=== PATIENT | female | born 1985 | race Caucasian/White ===

== ENCOUNTER 2022-04-09 03:29 | Outpatient (CLI) | payer OTHER, SELFPAY ==
[2022-04-09 11:20] LABS: Abs Immature Grans 0.05 10^3/uL (0.0-0.06); Absolute Basophil Count 0.03 10^3/uL (0.0-0.2); Absolute Eosinophil Count 0.13 10^3/uL (0.0-0.7); Absolute Monocyte Count 0.51 10^3/uL (0.1-0.8); Absolute Neutrophil Count 8.27 10^3/uL (1.2-6.7); Basophils % 0.3; Eosinophils % 1.3; HCT 31.8 % (36.0-46.0); HGB 10.7 g/dL (11.2-15.7); Immature Grans % 0.5; Lymphocytes % 12.6; MCH 28.8 pg (27.0-33.0); MCHC 33.6 % (32.0-36.0); MCV 86 fL (80-95); MPV 9.4 fL (8.0-11.0); Neutrophils % 80.3; Platelet Count 312 10^3/uL (130-400); RBC 3.72 10^6/uL (3.93-5.22); RDW 13.4 % (11.7-14.6); RDW-SD 41.7 fL; WBC 10.29 10^3/uL (4.4-10.8)
[2022-04-09 15:20] LABS: *AMPHETAMINES SCREEN URINE Negative (Negative); *BARBITURATES SCREEN URINE Negative (Negative); *BENZODIAZEPINES SCREEN URINE Negative (Negative); Cannabinoids THC Negative (Negative); Cocaine Screen,Urine Negative (Negative); METHADONE URINE SCREEN Negative (Negative); OPIATES URINE SCREEN Negative (Negative)
[2022-04-09 15:21] LABS: Tricyclic Antidepressants Negative (Negative)
[2022-04-10 09:28] LABS: Hepatitis B Surface Ag Negative (Negative)
[2022-04-10 09:48] LABS: Hepatitis C Ab w Rflx HCV PCR Negative (Negative)
[2022-04-10 10:33] LABS: HIV-1/2 Ag & Ab Screen Negative (Negative)
[2022-04-10 11:05] LABS: Varicella IgG Antibody Positive (See Note)
[2022-04-10 11:07] LABS: Rubella IgG Ab (UVM) Positive (See Note)
[2022-04-10 13:45] LABS: Chlamydia Result Negative (Negative); GC Result Negative (Negative)
[2022-04-11 12:59] LABS: Syphilis IgG w/Reflex Nonreactive (Nonreactive)
[2022-04-12 16:04] LABS: Buprenorphine Negative ng/mL (Cutoff: 5.0); Norbuprenorphine Negative ng/mL (Cutoff: 2.5)
== END 2022-04-09 03:30 | disposition home or self-care (01) ==
LOC: LBO 03:29
PROVIDERS: PCP Nurse Practitioner Family; Visit Provider Advanced Practice Midwife
DX: Z34.91 Encounter for supervision of normal pregnancy, unspecified, first trimester (principal)
CPT/HCPCS: 36415; 80307; 86787; 86803; 86850; 86900; 86901; 87340; 87389; 87491; 87591; 85025; 86762; 86780; 87086

== ENCOUNTER 2022-07-31 03:37 | Outpatient (CLI) | payer OTHER, SELFPAY ==
[2022-07-31 10:22] LABS: HCT 29.2 % (36.0-46.0); HGB 9.6 g/dL (11.2-15.7); MCH 28.7 pg (27.0-33.0); MCHC 32.9 % (32.0-36.0); MCV 87 fL (80-95); Platelet Count 299 10^3/uL (130-400); RBC 3.34 10^6/uL (3.93-5.22); RDW 13.2 % (11.7-14.6); RDW-SD 41.8 fL; WBC 10.89 10^3/uL (4.4-10.8)
[2022-07-31 11:23] LABS: Glucose,1 Hr (Glucola) 137 mg/dL (80-140)
== END 2022-07-31 03:38 | disposition home or self-care (01) ==
LOC: LBO 03:37
PROVIDERS: PCP Nurse Practitioner Family; Visit Provider Advanced Practice Midwife
DX: Z34.92 Encounter for supervision of normal pregnancy, unspecified, second trimester (principal)
CPT/HCPCS: 36415; 82950; 85027

== ENCOUNTER 2022-08-09 04:02 | Outpatient (CLI) | payer OTHER, SELFPAY ==
[2022-08-09 11:42] LABS: Glucose 3 Hour 59 mg/dL
[2022-08-09 12:17] LABS: Glucose 1 Hour 162 mg/dL
== END 2022-08-09 04:03 | disposition home or self-care (01) ==
LOC: LBO 04:02
PROVIDERS: Advanced Practice Midwife; PCP Nurse Practitioner Family; Visit Provider Advanced Practice Midwife
DX: Z34.93 Encounter for supervision of normal pregnancy, unspecified, third trimester (principal); Z3A.29 29 weeks gestation of pregnancy
CPT/HCPCS: 36415; 82951

== ENCOUNTER 2022-09-14 12:36 | Outpatient (CLI) | payer OTHER, SELFPAY ==
[2022-09-14 10:29] LABS: HCT 30.7 % (36.0-46.0); HGB 9.9 g/dL (11.2-15.7); MCH 27.7 pg (27.0-33.0); MCHC 32.2 % (32.0-36.0); MCV 86 fL (80-95); MPV 9.7 fL (8.0-11.0); Platelet Count 211 10^3/uL (130-400); RBC 3.57 10^6/uL (3.93-5.22); RDW 14.4 % (11.7-14.6); RDW-SD 44.8 fL; WBC 9.36 10^3/uL (4.4-10.8)
== END 2022-09-14 12:37 | disposition home or self-care (01) ==
LOC: LBO 12:36
PROVIDERS: PCP Nurse Practitioner Family; Visit Provider Advanced Practice Midwife
DX: O99.013 Anemia complicating pregnancy, third trimester (principal)
CPT/HCPCS: 36415; 85027

== ENCOUNTER 2022-09-25 02:04 | Outpatient (RCR) | payer OTHER, SELFPAY ==
[2022-09-17] MEDS: IRON SUCROSE COMPLEX 200 MG in Normal Saline 100 ML 440 MG IVPB (09:50)
[2022-09-17] MEDS: Normal Saline Flush 10 ML SYR IVP (09:50)
[2022-09-24 10:11] LABS: HGB 10.6 g/dL (11.2-15.7)
[2022-09-24] MEDS: Normal Saline Flush 10 ML SYR IVP (10:29)
[2022-09-24] MEDS: IRON SUCROSE COMPLEX 200 MG in Normal Saline 100 ML 440 MG IVPB (10:29)
== END 2022-09-25 23:59 | disposition home or self-care (01) ==
LOC: INF 02:04
PROVIDERS: PCP Nurse Practitioner Family; Visit Provider Advanced Practice Midwife
DX: O99.013 Anemia complicating pregnancy, third trimester (principal)
CPT/HCPCS: 36415; 96365; 85018; J1756

== ENCOUNTER 2022-09-28 09:34 | Outpatient (CLI) | payer OTHER, SELFPAY ==
[2022-09-28 12:17] LABS: *AMPHETAMINES SCREEN URINE Negative (Negative); *BARBITURATES SCREEN URINE Negative (Negative); *BENZODIAZEPINES SCREEN URINE Negative (Negative); Cannabinoids THC Negative (Negative); Cocaine Screen,Urine Negative (Negative); METHADONE URINE SCREEN Negative (Negative); OPIATES URINE SCREEN Negative (Negative)
[2022-09-28 12:18] LABS: Tricyclic Antidepressants Negative (Negative)
[2022-10-05 16:50] LABS: Buprenorphine Negative ng/mL (Cutoff: 5.0); Norbuprenorphine Negative ng/mL (Cutoff: 2.5)
== END 2022-09-28 09:35 | disposition home or self-care (01) ==
LOC: LBN 09:35
PROVIDERS: PCP Nurse Practitioner Family; Visit Provider Advanced Practice Midwife
DX: Z34.93 Encounter for supervision of normal pregnancy, unspecified, third trimester (principal); Z3A.36 36 weeks gestation of pregnancy; Z36.85 Encounter for antenatal screening for Streptococcus B
CPT/HCPCS: 80307; 80348; 87081

== ENCOUNTER 2022-10-08 02:56 | Outpatient (RCR) | payer OTHER, SELFPAY ==
[2022-10-01] MEDS: Normal Saline Flush 10 ML SYR IVP (09:45)
[2022-10-01 09:59] LABS: HGB 9.8 g/dL (11.2-15.7)
[2022-10-01] MEDS: IRON SUCROSE COMPLEX 200 MG in Normal Saline 100 ML 440 MG IVPB (10:19)
[2022-10-08] MEDS: IRON SUCROSE COMPLEX 200 MG in Normal Saline 100 ML 440 MG IVPB (09:55)
[2022-10-08 09:57] LABS: HCT 34.6 % (36.0-46.0); MCH 27.7 pg (27.0-33.0); MCHC 32.7 % (32.0-36.0); MCV 85 fL (80-95); MPV 10.8 fL (8.0-11.0); Platelet Count 256 10^3/uL (130-400); RBC 4.08 10^6/uL (3.93-5.22); RDW 15.8 % (11.7-14.6); RDW-SD 48.1 fL; WBC 10.18 10^3/uL (4.4-10.8)
[2022-10-08] MEDS: Normal Saline Flush 10 ML SYR IVP (09:59)
[2022-10-08 10:01] LABS: HGB 11.3 g/dL (11.2-15.7)
[2022-10-08 10:39] LABS: Total Iron Binding Capacity 570 ug/dL (250-450)
[2022-10-08 10:57] LABS: Ferritin 290 ng/mL (8-252); Vitamin B12 379 pg/mL (193-986)
== END 2022-10-26 23:59 | disposition home or self-care (01) ==
LOC: INF 02:56
PROVIDERS: PCP Nurse Practitioner Family; Visit Provider Advanced Practice Midwife
DX: O99.013 Anemia complicating pregnancy, third trimester (principal)
CPT/HCPCS: 36415; 85027; 96365; 82607; 82728; 83550; 84443; 85018; J1756

== ENCOUNTER 2022-10-11 14:25 | Outpatient (CLI) | payer OTHER, SELFPAY ==
[2022-10-11 17:38] VITALS: BP 137/88; PULSE 112; TEMP 36.6
--- NOTE | 2022-10-11 18:02 | W.OBNST ---
Date of service: 10/11/22 Time of Service: 18:02 NST Evaluation Reason for NST Reasons for Nonstress Test: OTHER, SEE COMMENT Reason for NST Other: Elevated FHR by doppler in office Gestational Age Gestational Age in Weeks and Days: 38 Weeks and 0Days Test and Monitor Explained Test/Monitor Explained: Test Explained, Monitor Explained and Patient Verbalized Understanding Vital Signs Blood Pressure: 137/88 Pulse: 112 Temperature: 97.9 F Urine Results Urine Protein: Negative Urine Ketones: Positive Urine Glucose: Negative Urine Blood: Negative NST Information Date on Monitor: 10/11/22 Time on Monitor: 14:08 Date off Monitor: 10/11/22 Time off Monitor: 17:00 Total Time on Monitor: 172 NST Interventions: PO Hydration Contraction Frequency: Q4-7 NST Evaluation Patient States Movement: Present FHR Baseline: 125 Variability: Moderate 6-25 bpm Accelerations: 15x15 Decelerations: None NST Results: Reactive Note N/A NST Note NST Reviewed and Verified by: Ca Fitch
[2022-10-11 18:03] VITALS: BP 137/88; PULSE 112; TEMP 36.6
== END 2022-10-11 17:10 | disposition home or self-care (01) ==
LOC: BCD 14:25 → OBS 14:31
PROVIDERS: PCP Nurse Practitioner Family; Visit Provider Advanced Practice Midwife
DX: O36.8330 Maternal care for abnormalities of the fetal heart rate or rhythm, third trimester, not applicable or unspecified (principal); Z3A.38 38 weeks gestation of pregnancy
CPT/HCPCS: 59025

== ENCOUNTER 2022-10-22 03:32 | Inpatient (IN) | payer OTHER, SELFPAY ==
[2022-10-22] VITALS (142 sets, daily range): BP systolic 64–146; BP diastolic 33–92; PULSE 0–133; RESP 16; TEMP 36.5–36.8; O2SAT 97–99; BMI 29.0
--- NOTE | 2022-10-22 03:55 | W.PM.OBHPL1 ---
Date of service: 10/22/22 Time of Service: 03:55 Assessment and Plan Assessment and plan (1) Uterine contractions: Status: Acute Assessment and plan: 1. Beatriz feels she is beginning active labor. VE soft posterior. Due to history of 3 and 7 hour labors for past 2 deliveries will admit with expectation of NVD. 2. COVID and CBC/Type and screen orders placed 3. Will start IV as her preference is epidural but is OK with waiting at this time. 4. Will reassess in 2 hours or as indicated. OB-HPI Labor/Delivery History of Present Illness Reason for Visit: Labor Chief Complaint: Uterine Contractions. GABE Calculator Estimated Delivery Date Method Current WG Current Estimate 10/25/22 Ultrasound #1 39w 4d Other Estimates 10/17/22 LMP (Certain) 40w 5d 10/25/22 Conception 39w 4d Comments: Beatriz is admitted in early labor due to complaint of regular contractions since 2330 on 10/21/22. She denies ROM. Baby has been active. She has had some bloody show. Has not had VE during to date. Feels she is doing OK right now but will want epidural. KH History of Present Expected Delivery Route/Plan - CNM FOB/ - Man Gomez (4th baby together) BG Carmen Prefers epidural (or intrathecal) GBS negative Specific Issues/Plan 1. declines all optional testing 2. MA - declines level II US at [facility] unless indicated by [facility] US 3. Has hx of PPD and used Sertraline 3a. Increased anxiety reported, restart sertraline 25 mg qd @ 27 wks 4. COVID vaccinated and boosted X 1, vaccinated and boosted X 1 as well 5. Anemia at initial OB: hgb 10.7, will advise oral iron supplement 5a. 28 week iron 9.6 has not been taking iron often, will take and repeat hgb in lab - 9.9, iron infusion scheduled. 5b. At 37 wks, had iron IV x4, hgb now 11.3, will d/c infusions, TSH and B12 WNL 6. Accepts [facility] Allergy consult for PCN reax, order placed 05/07/22- 6a. 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 She received penicillin x 2 with first 2 births, hives occurred more recently with PO dicloxacillin. 7. 1 hr 137, @ 29 wks 3hr GTT nml x3, fasting elevated @ 96, blood sugar QID x2 wks= WNL, fastings x2-3/wk also WNL 8. Vulvar varicosities - v2 supporter suggested Assessment: History Reviewed & Current Review of Systems All systems reviewed & are unremarkable except as noted in HPI and below PFSH All Active Problems (Updated 10/22/22 @ 04:04 by Becky Foster CNM) Uterine contractions (Acute) Anemia affecting (Acute) History of penicillin-type antibiotic allergy (Acute) Double thoracic curve idiopathic scoliosis (Acute) has had epidural X 3 without difficulty History of depression, currently (Acute) (Acute) Family History Father Asthma Hypertension Maternal Grandmother Cancer ovarian Diabetes type II Maternal Grandfather Cancer unknown type possibly prostate Diabetes type II Heart disease Hyperlipidemia Prostate cancer Paternal Grandfather Dementia Self Depression post depression Mother Diabetes type II Paternal Uncle Diabetes type I Social History Smoking/Tobacco Use Status: Never Smoking risk assessment performed?: Yes Alcohol Intake: former Drug use: Never Substance use type: does not use Adopted: No Foster care: No Household members: spouse and children Number of Children: 3 Do you think of yourself as: straight/heterosexual Current gender identity: female What type of physical activity do you participate in: other Details: 0 exercise days active w/3 children Seatbelt use: always Female Reproductive History Menstrual Age of Menarche: 13 Duration of menses: 6-7 days control method: none History History 4 Para 3 Hx # Term Pregnancies 3 Multiple births 0 Hx # Pregnancies 0 Ectopic pregnancies 0 AB induced 0 Hx Number of Living Children 3 AB spontaneous 0 Past Pregnancies Del. Date GA/Weeks # Preg Succ Route Wgt Sex Labor Lgth Anesthesia Location Prov Complic 12/28/10 39 No Yes vaginal 6 lb 13 oz Female 21 hours [facility] [place] 10/24/13 39 No Yes vaginal 7 lb 13 oz Female 3 hours [facility] [place] 03/01/18 38 No Yes vaginal 7 lb 8 oz Female 7 hours [facility] [place] Delivery Date: 12/28/10 Last Updated by: Becky Knight CNM GBS, received IV penicillin Delivery Date: 10/24/13 Last Updated by: Becky Knight CNM GBS pos. Received IV penicillin without reaction. Delivery Date: 03/01/18 Last Updated by: Becky Knight CNM GBS neg Meds Allergies and Home Medications Allergies Allergy/AdvReac Type Severity Reaction Status Date / Time doxycycline Allergy Intermediate Hives Verified 10/18/22 13:42 Penicillins Allergy hives Verified 10/18/22 13:42 Home Medications Medication Instructions Recorded Confirmed Type vitamin 1 tab-cap PO DAILY #90 tab-caps 02/19/13 10/18/22 History no.76-iron,carbonyl 29 mg iron-folic acid 1 mg tablet (Prenatabs Rx) ferrous sulfate 325 mg (65 mg 325 mg PO DAILY #90 tabs 04/09/22 10/18/22 Rx iron) tablet alcohol swabs (Pro Comfort Alcohol 1 pad topical DAILY #100 ea 08/09/22 10/18/22 Rx Pads) blood sugar diagnostic (FreeStyle #50 ea 08/09/22 10/18/22 Rx Lite Strips) blood-glucose meter (FreeStyle #1 ea 08/09/22 10/18/22 Rx Lite Meter kit) lancets 28 gauge (FreeStyle #100 ea 08/09/22 10/18/22 Rx Lancets) sertraline 25 mg tablet See Rx Instructions .Route 08/28/22 10/18/22 Rx .COMPLEX #30 tabs Exam Physical Exam Vital signs: Temp Pulse Resp BP 98.1 F 118 H 16 137/91 H 10/22/22 03:48 10/22/22 03:48 10/22/22 03:48 10/22/22 03:48 Vital Signs Reviewed: Yes Constitutional Constitutional: no acute distress and average body habitus Detailed Labor and Delivery Exam Dilation: 2 Effacement (%): 70 station: -1 Position: KARLEE Cervix position: posterior Consistency: soft Pascal Score: Cervical Points Exam 0 1 2 3 Dilation Closed 1-2cm 3-4 cm 5-6cm Effacement 0-30% 40-50% 60-70% 80% Consistency Firm Medium Soft Station -3 -2 -1,0 +1,+2 Position Posterior Mid Anterior PASCAL Score(Cervical Ripeness Score): 7 Amniotic Membrane Status: Intact Monitor Mode: External Contraction Frequency(min): 3-5 Contraction Duration(sec): 40-60 Contraction Intensity: Moderate Fetus A Heart Rate Baseline: 140 Monitor Accelerations: 10 X 10 Monitor Decelerations: Early Variability: Moderate (6-25 BPM) Categories: Category I Est. Weight: 7 lb HEENT Exam HEENT Exam: Normal Neck Exam Neck Exam: Normal Chest/Brest/Axilla Exam Chest Exam: Normal Breast Exam Breast Exam: Not Done Respiratory Exam Respiratory Exam: Normal Cardiovascular Exam Cardiovascular Exam: Normal (initial BP on arrival slightly elevated) Abdominal Exam Abdominal Exam: Normal (gravid uterus, size equals dates) Rectal Exam Rectal Exam: Not Done Exam Exam: Normal Extremities Exam Extremities Exam: Normal Back/Spine/Pelvis Exam Back Exam: Not Done (has history of scoliosis, anesthesia had been consulted in , no contraindication to epidural) Pelvis Adequate: Yes Skin Exam Skin Exam: Normal Neurological Exam Neurological Exam: Normal Psychiatric Exam Psychiatric Exam: Normal Results Results Group Beta Strep: Negative Blood Type: A+ Rubella Status: Immune Varicella Immunity: Immune Lab Results: GC CT neg, Hep B&C neg, HIV neg, Syphilis neg, 1 hour 137, 3 hour 96/162/127/59, declined cfDNA or Quad. Risk Assessment Risk for Shoulder Dystocia Historical/Initial OB: NEGATIVE FOR: Pelvic Abnormality, Pre- BMI>30, Previous Shoulder Dystocia or Previous Macrosomia 40 Weeks: NEGATIVE FOR: EFW> 4500 gms, Maternal Weight Gain >40lb or Post Dates Date/Initial: 04/09/22 Delivery Plan @ 40 wks: MIAD. SENIA Risk for Pre-Eclampsia Yes, if one or more: NEGATIVE FOR: Hx Pre-E/Gest HTN, Chronic HTN, Multiple Gestation, Pre-gestational DM, Renal Disease, Systemic Lupus or APA Syndrome Yes, if 2 or more: POSITIVE FOR: Age>= 35 yrs; NEGATIVE FOR: Nulliparity, >10yr btwn pregnancies, BMI>30, ethinicty, Mother/Sister w/ Pre-E or Previous IUGR Risk for Post- Hemorrhage Initial: NEGATIVE FOR: Multiple Gestation, Previous PPH, Known Clotting Deficiency, Grand Multiparity or Anticoagulation At Risk?: No Counseled re: Active Management: Yes Date/Initials: 10/22/22 KH Risks Reviewed Risks Reviewed Upon Admission: Yes
[2022-10-22 04:47] LABS: Source Nasal/Nares
[2022-10-22 04:49] LABS: HCT 34.6 % (36.0-46.0); HGB 11.5 g/dL (11.2-15.7); MCH 28.1 pg (27.0-33.0); MCHC 33.2 % (32.0-36.0); MCV 85 fL (80-95); MPV 10.6 fL (8.0-11.0); Platelet Count 265 10^3/uL (130-400); RBC 4.09 10^6/uL (3.93-5.22); RDW 15.5 % (11.7-14.6)
[2022-10-22 05:22] LABS: COVID-19 PCR Negative (Negative)
--- NOTE | 2022-10-22 06:22 | W.PM.OBNL1 ---
Date of service: 10/22/22 Time of Service: 06:22 Objective Abnormal lab results 10/22/22 Range/Units 04:04 WBC 11.50 H (4.4-10.8) 10^3/uL Hct 34.6 L (36.0-46.0) % RDW 15.5 H (11.7-14.6) % Temp Pulse Resp BP 98.1 F 118 H 16 109/68 10/22/22 03:48 10/22/22 04:16 10/22/22 03:48 10/22/22 04:16 Laboratory Results WBC 11.50 10^3/uL (4.4-10.8) H 10/22/22 04:04 RBC 4.09 10^6/uL (3.93-5.22) 10/22/22 04:04 Hgb 11.5 g/dL (11.2-15.7) 10/22/22 04:04 Hct 34.6 % (36.0-46.0) L 10/22/22 04:04 MCV 85 fL (80-95) 10/22/22 04:04 MCH 28.1 pg (27.0-33.0) 10/22/22 04:04 MCHC 33.2 % (32.0-36.0) 10/22/22 04:04 RDW 15.5 % (11.7-14.6) H 10/22/22 04:04 Plt Count 265 10^3/uL (130-400) 10/22/22 04:04 MPV 10.6 fL (8.0-11.0) 10/22/22 04:04 COVID-19 Source Nasal/Nares 10/22/22 04:04 SARS-CoV-2 (PCR) Negative (Negative) 10/22/22 04:04 Patient ABO/Rh A Positive 10/22/22 04:04 Antibody Screen NEGATIVE 10/22/22 04:04 Subjective Interval history since last seen: Beatriz requests epidural. She prefer to avoid VE until after epidural. She is aware that if labor has not progressed that epidural may slow labor and that pitocin may be needed. Anesthesia will be notified by Nursing Coordinator Of Rehabilitation Services. KH Interventions Pain Management Interventions: Epidural and Nitrous Oxide , used occasionally with some relief, patient then requested epidural. KH . Results Hemoglobin/Hematocrit: Hgb 11.5 g/dL (11.2-15.7) 10/22/22 04:04 Hct 34.6 % (36.0-46.0) L 10/22/22 04:04 Abnormal Lab Findings: Abnormal Labs 10/22/22 04:04 WBC 11.50 H Hct 34.6 L RDW 15.5 H
--- NOTE | 2022-10-22 07:25 | W.ANESPRE ---
General Info Date of Service Date Performed: 10/22/22 Height: 5 ft 1 in Weight: 69.853 kg Body Mass Index (BMI): 29.0 Meds Allergies and Home Medications Allergies Allergy/AdvReac Type Severity Reaction Status Date / Time doxycycline Allergy Intermediate Hives Verified 10/18/22 13:42 Penicillins Allergy hives Verified 10/18/22 13:42 Home Medication Medication Instructions Recorded vitamin 1 tab-cap PO DAILY #90 tab-caps 02/19/13 no.76-iron,carbonyl 29 mg iron-folic acid 1 mg tablet (Prenatabs Rx) ferrous sulfate 325 mg (65 mg 325 mg PO DAILY #90 tabs 04/09/22 iron) tablet alcohol swabs (Pro Comfort Alcohol 1 pad topical DAILY #100 ea 08/09/22 Pads) blood sugar diagnostic (FreeStyle #50 ea 08/09/22 Lite Strips) blood-glucose meter (FreeStyle #1 ea 08/09/22 Lite Meter kit) lancets 28 gauge (FreeStyle #100 ea 08/09/22 Lancets) sertraline 25 mg tablet See Rx Instructions .Route 08/28/22 .COMPLEX #30 tabs Current Visit Medications: Current Medications Generic Name Dose Route Start Last Admin Trade Name Freq PRN Reason Stop Dose Admin Ephedrine Sulfate 5 mg 10/22/22 06:24 Ephedrine 50 Mg/Ml Vial IVP DIRECTED PRN Fentanyl/Ropivacaine 200 ml 10/22/22 06:30 Fentanyl/Ropivacaine 2 Mcg/Ml And 0.1% 200 Ml Cadd Cassette EP DIRECTED GAURAV Fentanyl/Ropivacaine 200 ml 10/22/22 06:45 Fentanyl/Ropivacaine 2 Mcg/Ml And 0.1% 200 Ml Cadd Cassette EP DIRECTED [facility] Sodium Chloride 500 mls @ 0 mls/hr 10/22/22 03:46 Saline 500ml Bag IV PRN PRN As Directed Ringer's Solution 1,000 mls @ 125 mls/hr 10/22/22 04:00 IV INFUSION GAURAV Ringer's Solution 500 mls @ 500 mls/hr 10/22/22 06:35 IV 10/22/22 07:34 BOLUS ONE IV Miscellaneous Supplies 1 each 10/22/22 04:00 Iv Access IV DIRECTED [facility] Naloxone HCl 0 mg 10/22/22 06:24 Naloxone 0.4 Mg/Ml Vial IVP DIRECTED PRN Sodium Chloride 0 ml 10/22/22 03:46 Normal Saline Flush 10 Ml Syr IVP PRN PRN PFSH Active Problems Active Problems: Problem Status Onset Code Uterine contractions O47.9 Anemia affecting O99.019 History of penicillin-type antibiotic allergy Z88.0 Double thoracic curve idiopathic scoliosis M41.24 History of depression, currently O99.891, Z86.59 Z34.90 Tobacco Smoking/Tobacco Use Status: Never Alcohol Alcohol Intake: former Substance Use Substance use: Never Substance use type: does not use Prental History History 4 Para 3 Hx # Term Pregnancies 3 Multiple births 0 Hx # Pregnancies 0 Ectopic pregnancies 0 AB induced 0 Hx Number of Living Children 3 AB spontaneous 0 Past Pregnancies Del. Date GA/Weeks # Preg Succ Route Wgt Sex Labor Lgth Anesthesia Location Prov Complic 12/28/10 39 No Yes vaginal 3090.098 g Female 21 hours [facility] 10/24/13 39 No Yes vaginal 3543.69 g Female 3 hours [facility] 03/01/18 38 No Yes vaginal 3401.943 g Female 7 hours [facility] [place] Delivery Date: 12/28/10 Last Updated by: Becky Knight CNM GBS, received IV penicillin Delivery Date: 10/24/13 Last Updated by: Becky Knight CNM GBS pos. Received IV penicillin without reaction. Delivery Date: 03/01/18 Last Updated by: Becky Knight CNM GBS neg Vital Signs and Lab Results Vital Signs Most Recent Vital Signs in EMR: Most Recent Vital Signs Temp Pulse Resp BP Pulse Ox 36.7 C 100 H 16 105/67 99 10/22/22 03:48 10/22/22 07:24 10/22/22 07:08 10/22/22 07:20 10/22/22 07:24 Lab Results 10/22/22 04:04 Blood Type / Crossmatch: Patient ABO/Rh A Positive 10/22/22 Antibody Screen NEGATIVE 10/22/22 Complete Blood Count: White Blood Count 11.50 10^3/uL (4.4-10.8) H 10/22/22 04:04 Red Blood Count 4.09 10^6/uL (3.93-5.22) 10/22/22 04:04 Hemoglobin 11.5 g/dL (11.2-15.7) 10/22/22 04:04 Hematocrit 34.6 % (36.0-46.0) L 10/22/22 04:04 Platelet Count 265 10^3/uL (130-400) 10/22/22 04:04 Complete Metabolic Panel: No Data to Display Liver Function Panel: No Data to Display Coagulation Panel: No Data to Display Cardiac Panel: No Data to Display Arterial Blood Gas: No Data to Display Venous Blood Gas: No Data to Display Pancreas Panel: No Data to Display Thyroid Panel: Thyroid Stimulating Hormone (TSH) 2.00 uIU/mL (0.36-3.74) 10/08/22 09:34 Infectious Disease: Coronavirus (COVID-19)(PCR) Negative (Negative) 10/22/22 04:04 Coronavirus 2019 Source Nasal/Nares 10/22/22 04:04 Blood Cultures: No Data to Display Toxicology Panel: Urine Amphetamines Screen Negative (Negative) 09/28/22 09:00 Urine Benzodiazepines Screen Negative (Negative) 09/28/22 09:00 Urine Barbiturates Screen Negative (Negative) 09/28/22 09:00 Urine Cocaine Screen Negative (Negative) 09/28/22 09:00 Urine Methadone Screen Negative (Negative) 09/28/22 09:00 Urine Opiates Screen Negative (Negative) 09/28/22 09:00 Ur Tricyclic Antidepressants Screen Negative (Negative) 09/28/22 09:00 Ur Tetrahydrocannabinol (THC) Scrn Negative (Negative) 09/28/22 09:00 Panel: No Data to Display Anesthesia Assessment and Plan Anesthesia History Personal History: No History of Anesthesia Complications Family History: No Family History of Anesthesia Complications Exercise Tolerance Exercise Tolerance: Metabolic Equivalents>4 Pertinent Negatives Pertinent Negatives: No Symptoms of GERD, No Major Cardiovascular Symptoms or Complaints and No Major Pulmonary Symptoms or Complaints Cardiac & Pulmonary Exam Cardiac Exam: Normal S1/S2 Heart Sounds Pulmonary Exam: Clear Bilateral Breath Sounds Implantable Cardiac Device Does patient have a Pacemaker or an ICD?: No Airway Exam Known Difficult Airway: No Mallampati Class: 2 Mouth Opening: Normal (> 3cm) Thyromental Distance: Greater than 3 cm Neck Range of Motion: Full ROM Neck Circumference: Normal Teeth Condition: Normal Dentition ASA Classification ASA Score: ASA 2 Emergency Case?: No NPO Status NPO Status: NPO Clears >2 hours, Solids >8 hours Status Status: Confirmed Anesthesia Plan Resuscitation Status: Full Code Anesthesia Technique: Epidural Anesthesia Airway Planned: Natural Airway Monitors Used: Standard Monitors
--- NOTE | 2022-10-22 07:26 | ANES.NEUR_ITS ---
Epidural/Spinal Catheter Date Performed: 10/22/22 Procedure Start: 06:50 Procedure Stop: 07:16 Requesting Provider: Becky Foster Procedure Location: Obstetrics Reason Performed: Labor Epidural Standard Monitors Applied: ECG, Blood Pressure and SpO2 Patient Position: Sitting Sedation Given (Indicate Dose Given): No Sedation given Patient Mental Status: Awake Sterility: Hand Hygiene, Surgical Cap, Surgical Mask, Sterile Gloves, Sterile Drape/Sheet and Chlorhexidine Procedure Location: L3-L4 Interspace Epidural Needle: Tuohy 18 Gauge Needle Length: 3.5 Inch Needle Approach: Midline Epidural Procedure: Skin Prepped, Sterile Drape Placed, 1% Lidocaine to skin and subcutaneous tissue with 25G needle, Tuohy Needle placed, JINNY to Saline Used, Epidural Catheter Placed, Negative Heme, Negative CSF Flow and Tuohy Needle Removed Catheter Placed?: Catheter Placed Test Dose (Indicate Dose Given): 3ml 1.5% Lidocaine with 1:200K Epinephrine Given and Negative Test Dose Loss of Resistance Depth (cm): 6 Catheter depth at skin (cm): 14 Dressing: Sorbaview Dressing Placed, Mastisol Used and Dressing reinforced with Tape Epidural Provider Bolus (Indicate Dose Given): Total bolus dose given in 3-5 ml divided doses and Total Ropivacaine 0.1% with Fentanyl 2mcg/ml Given from pump. (ml) Dose:: 5 mL Additives (Indicate Dose Given ): None Infusion Medication: Medica tion Infusion Began Medication Infusion: Ropivacaine 0.1% with Fentanyl 2mcg/ml Maintenance Infusion Rate (ml/hour): 10 PCEA Bolus Dose (ml): 5 Block Level: N/A Paresthesia: Right (Patient describes as more pressure than electrical, x2 paresthesia. Stopped advancing both times and when threaded catheter, tolerated well.) Paresthesia Duration: Transient Ultrasound: Not Used Number of Attempts (See previous attempts in note section): 1 Procedure Tolerated: No Complications and Patient tolerated well Procedure Outcome: Successful Procedure Comment:: Patient had episode of hypotension following initial bolus of 5mL, epidural pump stopped momentarily, fluid wide open, 180mcg of neosynephrine. Waited 10 minutes following medication administration, restarted pump, patient fell well and tolerating. Performed By: Kayleigh Gutierres
--- NOTE | 2022-10-22 07:50 | PGE_ITS ---
Date of service: 10/22/22 Time of Service: 07:50 Informed Consent Informed Consent: Augmentation of Labor (AROM and if not in adequate labor in 1- 2 hours will use pitocin.) and Risk,Benefits,Alternatives Discussed Pelvic Exam Dilation: 4 Effacement (%): 90 station: -1 Position: KARLEE Cervix Position: mid Consistency: soft Contractions Monitor Mode: External Contraction Frequency(min): 3-5 Contraction Duration(sec): 40-80 Intensity: Moderate Fetus A Monitor: External (US) Heart Rate Baseline: 150 Variability: Moderate (6-25 BPM) Categories: Category I Accelerations: Absent Decelerations: None Amniotic Membrane Status: Ruptured Rupture Method: Artifical Amniotic Fluid: Clear Amount: large gush Date of Membrane Rupture: 10/22/22 Time of Membrane Rupture: 07:46 Assessment and Plan Assessment and plan (1) Normal labor: Status: Acute Assessment and plan: 1. Patient is comfortable since epidural 2. Would prefer AROM over pitocin for augmentation as contractions spaced out a little after epidural 3. Clear fluid with AROM /-1 now 4. Continue present management and expect NVD. KH Objective Abnormal lab results 10/22/22 Range/Units 04:04 WBC 11.50 H (4.4-10.8) 10^3/uL Hct 34.6 L (36.0-46.0) % RDW 15.5 H (11.7-14.6) % Temp Pulse Resp BP Pulse Ox 98.1 F 0 L 16 109/70 99 10/22/22 03:48 10/22/22 07:49 10/22/22 07:08 10/22/22 07:42 10/22/22 07:44 Laboratory Results WBC 11.50 10^3/uL (4.4-10.8) H 10/22/22 04:04 RBC 4.09 10^6/uL (3.93-5.22) 10/22/22 04:04 Hgb 11.5 g/dL (11.2-15.7) 10/22/22 04:04 Hct 34.6 % (36.0-46.0) L 10/22/22 04:04 MCV 85 fL (80-95) 10/22/22 04:04 MCH 28.1 pg (27.0-33.0) 10/22/22 04:04 MCHC 33.2 % (32.0-36.0) 10/22/22 04:04 RDW 15.5 % (11.7-14.6) H 10/22/22 04:04 Plt Count 265 10^3/uL (130-400) 10/22/22 04:04 MPV 10.6 fL (8.0-11.0) 10/22/22 04:04 COVID-19 Source Nasal/Nares 10/22/22 04:04 SARS-CoV-2 (PCR) Negative (Negative) 10/22/22 04:04 Patient ABO/Rh A Positive 10/22/22 04:04 Antibody Screen NEGATIVE 10/22/22 04:04 Vital Signs Reviewed: Yes Subjective Interval history since last seen: Beatriz had some low BP's immediately after epidural but is feeling well now. She agrees to ROM for augmentation of labor. KH Results Hemoglobin/Hematocrit: Hgb 11.5 g/dL (11.2-15.7) 10/22/22 04:04 Hct 34.6 % (36.0-46.0) L 10/22/22 04:04 Abnormal Lab Findings: Abnormal Labs 10/22/22 04:04 WBC 11.50 H Hct 34.6 L RDW 15.5 H
[2022-10-22] MEDS: Oxytocin/Normal Saline 30 UNIT/500 ML BAG 95 UNITS IV (11:15)
--- NOTE | 2022-10-22 11:51 | OBVDS_ITS ---
Date of service: 10/22/22 Time of Service: 11:51 OB Labor/ Delivery Information Baby A Delivery Delivery Method: Spontaneaous Presentation: Cephalic Cephalic Position: Vertex Vertex Position: Left Occipital Anterior Cord Description-Baby A: 3 Vessels and Clamped/Cut Amniotic Fluid: Clear Estimated Blood Loss: 200 Delivery Outcome: Liveborn Infant Complications: none Infant Transferred: Remains with Mother Providers Nurse Reverse Logistics Analyst: Becky Foster Nurse: Neha Anne Nurse: Juliette Blanca Labor/Delivery Information Number of Babies in Womb: 1 Steroids Given: None Group Beta Strep: Negative Rubella Status: Immune Blood Type: A+ Varicella Immunity: Immune Shoulder Dystocia: No Note: Beatriz presented in early labor this morning, reports contractions began to be regular for 2 hours as of 0300. She was 2 cm on arrival but progressed in contractions frequency and duration and requested epidural at 0630. After epidural was effective, AROM was performed with patient permission at 0746 for clear fluid. She progressed to urge to push at 1100 and was found to have small anterior lip that reduced to complete dilation easily. Second stage huddle was held. Straight cath was performed to empty bladder and patient then began to push. She delivered live female over 1st degree perineal laceration at 1115. Baby was brought to Mother's abdomen by Mother for skin to skin. Positive family bonding noted. 8 and 9. Cord clamped after 90 seconds of delayed cord clamping and cut by FOB. 3 vessel cord noted. Placenta delivered via de la torre mechanism after pitocin was started for active management of third stage, at 1123, intact. Fundus firmed to U-1 with massage. EBL 200cc. 1st degree laceration was oozing blood and repaired with 2 stitches of 3.o Chromic. Sponge, needle and instrument count are correct. Beatriz and Man are using vasectomy (already done) for contraception. They are hoping for 24 hour stay. Beatriz is breast feeding her daughter, Carmen. Weight 7lb 8.1 oz. KH Stages of Labor Complete Dilatation Date: 10/22/22 Complete Dilatation Time: 11:00 ROM Baby A: 10/22/22 ROM Baby A: 07:46 ROM Total Time- Baby A: [id number] Infant Delivery Date-Baby A: 10/22/22 Infant Delivery Time-Baby A: 11:15 Labor Stage 2 Duration: 15 minutes Placenta Delivery Date-Baby A: 10/22/22 Placenta Delivery Time-Baby A: 11:23 Labor-Stage 3 Duration: 8 minutes Placenta Status: Delivered Baby A Infant Gender: Female Gestational Status: Term (39-41.6 wks) Gestational Age in Weeks/Days: 39 Weeks and 4 Days Score-1 Minute Interval(Baby A) Heart Rate-1 minute: 100 BPM or Greater Respiratory Effort- 1 minute: Spontaneous/Strong Cry Muscle Tone-1 minute: Active Movement Reflex Response-1 minute: Prompt Response Color-1 minute: Pallor or Cyanosis Total Score-1 minute: 8 Score-5 Minute Interval(Baby A) Heart Rate- 5 minute: 100 BPM or Greater Respiratory Effort-5 minute: Spontaneous/Strong Cry Muscle Tone-5 minute: Active Movement Reflex Response-5 minute: Prompt Response Color-5 minute: Bluish Hands or Feet Total Score- 5 minute: 9
[2022-10-22] MEDS: Lidocaine 1% Multi-Dose 20 ML VIAL IJ (15:54)
[2022-10-22] MEDS: Acetaminophen 325 MG TAB 650 MG PO (23:16)
[2022-10-23] MEDS: Acetaminophen 325 MG TAB 650 MG PO (06:33)
[2022-10-23 08:30] VITALS: BP 110/73; PULSE 70; RESP 16; TEMP 36.9
--- NOTE | 2022-10-23 10:33 | W.PM.OBDISCH ---
Date of service: 10/23/22 Time of Service: 10:33 DS: Diagnosis Discharge Diagnosis (1) care following vaginal delivery: Status: Acute Asessment and Plan: 1. Normal PP course 2. Contraception is vasectomy which has already been done 3. Patient to continue Sertraline and call if symptoms of PPD occur before 2 week PP visit 4. RTO 2 and 6 weeks PP. KH (2) Lactating mother: Status: Acute Discharge Plan Disposition Patient Disposition: Home Condition: Good Discharge Details Reason For Visit: Labor Admit Date/Time: 10/22/22 03:32 Admit Provider: Becky Foster Attending Provider: Becky Fostre [facility] Course: NVD over 1st degree vaginal introitus laceration of live female. Normal PP course. Experienced breast feeding mom who is breast feeding well. Home Meds and New Rx's Prescriptions: Continued ferrous sulfate 325 mg (65 mg iron) tablet 325 mg PO DAILY Qty: 90 4RF Prenatabs Rx 1 EACH tablet 1 tab-cap PO DAILY Qty: 90 sertraline 25 mg tablet See Rx Instructions .ROUTE .COMPLEX Qty: 30 0RF Dose Instruction: TAKE 1 TABLET BY MOUTH DAILY Rx Instructions: TAKE 1 TABLET BY MOUTH DAILY Discontinued alcohol swabs [Pro Comfort Alcohol Pads] Pads, Medicated 1 pad topical DAILY Qty: 100 2RF No Action (DME) FreeStyle Lite Strips Strip See Rx Instructions .Route Qty: 50 3RF Rx Instructions: daily fasting blood sugar (DME) blood-glucose meter [FreeStyle Lite Meter] Kit See Rx Instructions .Route Qty: 1 0RF Rx Instructions: As directed (DME) lancets [FreeStyle Lancets] 28 gauge misc See Rx Instructions .Route Qty: 100 3RF Rx Instructions: daily fasting blood sugar Discharge Instructions Instructions: Mastitis (GEN), Depression (GEN) Stand Alone Forms: BC Instructions, BC Post Vaginal Deliver Activity:: Activity as Tolerated Equipment/Supplies:: No Equipment Needed Diet:: As Tolerated OB:DS Summary Summary Vaginal Delivery Method: Spontaneaous Episiotomy Description: None Laceration Description: Perineal Laceration Extension: First Degree Contraception Discussed Contraception Discussed: Yes Contraceptive Plan: Vasectomy (already done), Infant Gender-Baby A: Female weight: 7 lb 8.108 oz Disposition of Baby A: Home Status at Discharge Functional status at discharge: independent ambulation Overall status at discharge: patient is back to baseline Mental Status: mental status grossly normal Speech and Movement: speech and movement normal Mood: congruent mood Affect: normal affect Time Spent with Patient providing and/or coordinating discharge services: Less than 30 minutes Exam Physical Exam Vital signs: Temp Pulse Resp BP Pulse Ox 97.8 F 64 16 114/77 99 10/22/22 20:03 10/22/22 20:03 10/22/22 20:03 10/22/22 20:03 10/22/22 07:44 Vital Signs Reviewed: Yes Constitutional Constitutional: no acute distress, average body habitus and cooperative HEENT Exam HEENT Exam: Normal Neck Exam Neck Exam: Normal (normal visual inspection) Respiratory Exam Respiratory Exam: Normal Cardiovascular Exam Cardiovascular Exam: Normal Abdominal Exam Abdomen: Other (normal exam) Fundal Exam Fundus: Below Umbilicus and Firm Comment: small lochia noted. KH Rectal Exam Rectal Exam: Not Done Exam Perineum: Normal and Repair Intact Extremities Exam Extremity Exam: Normal (denies calf tenderness) and Full ROM Back/Spine/Pelvis Exam Back Exam: Normal Skin Exam Skin Exam: Normal Neurological Exam Neurological Exam: Normal Psychiatric Exam Psychiatric Exam: Normal PFSH All Active Problems (Updated 10/23/22 @ 10:33 by Becky Foster CNM) Lactating mother (Acute) care following vaginal delivery (Acute) Normal labor (Acute) Uterine contractions (Acute) Anemia affecting (Acute) History of penicillin-type antibiotic allergy (Acute) Double thoracic curve idiopathic scoliosis (Acute) has had epidural X 3 without difficulty History of depression, currently (Acute) (Acute) Family History Father Asthma Hypertension Maternal Grandmother Cancer ovarian Diabetes type II Maternal Grandfather Cancer unknown type possibly prostate Diabetes type II Heart disease Hyperlipidemia Prostate cancer Paternal Grandfather Dementia Self Depression post depression Mother Diabetes type II Paternal Uncle Diabetes type I Social History Smoking/Tobacco Use Status: Never Smoking risk assessment performed?: Yes Alcohol Intake: former Drug use: Never Substance use type: does not use Adopted: No Foster care: No Household members: spouse and children Number of Children: 3 Do you think of yourself as: straight/heterosexual Current gender identity: female What type of physical activity do you participate in: other Details: 0 exercise days active w/3 children Seatbelt use: always Female Reproductive History Menstrual Age of Menarche: 13 Duration of menses: 6-7 days control method: none History History 4 Para 3 Hx # Term Pregnancies 3 Multiple births 0 Hx # Pregnancies 0 Ectopic pregnancies 0 AB induced 0 Hx Number of Living Children 3 AB spontaneous 0 Past Pregnancies Del. Date GA/Weeks # Preg Succ Route Wgt Sex Labor Lgth Anesthesia Location Prov Complic 12/28/10 39 No Yes vaginal 6 lb 13 oz Female 21 hours [facility] [place] 10/24/13 39 No Yes vaginal 7 lb 13 oz Female 3 hours [facility] [place] 03/01/18 38 No Yes vaginal 7 lb 8 oz Female 7 hours [facility] [place] Delivery Date: 12/28/10 Last Updated by: Becky Knight CNM GBS, received IV penicillin Delivery Date: 10/24/13 Last Updated by: Becky Knight CNM GBS pos. Received IV penicillin without reaction. Delivery Date: 03/01/18 Last Updated by: Becky Knight CNM GBS neg DS: Data Vitals/I&O Vitals and I&O: Vital Signs Temperature 97.8 F 10/22/22 20:03 Temperature Source Oral 10/22/22 20:03 Pulse 64 10/22/22 20:03 Pulse Rhythm Regular 10/23/22 07:21 Respiratory Rate 16 10/22/22 20:03 Respiratory Depth Normal 10/23/22 07:21 Blood Pressure 114/77 10/22/22 20:03 Blood Pressure Mean 89 10/22/22 20:03 Pulse Oximetry 99 10/22/22 07:44 Oxygen Delivery Method Room Air 10/22/22 03:48 Oxygen Flow Rate 0 10/22/22 03:48 Pain Level 2 10/23/22 06:33 Intake & Output 10/22/22 10/22/22 10/23/22 11:59 23:59 11:59 Output Total 300 / 1200 900 / 1200 Balance -300 / -1200 -900 / -1200 Weight 154 lb Output: Urine 300 / 1200 900 / 1200 Other: Urine Color Yellow Yellow Yellow Urine Appearance Clear Clear Voiding Methods Toilet
[2022-10-23] MEDS: Hamamelis Leaf/Glycerin 100 EACH BOX PR (12:46)
[2022-10-23] MEDS: Dibucaine 1% 28 GM TUBE TP (12:46)
--- NOTE | 2022-10-23 13:19 | W.ANESPOSTOP ---
Postoperative Evaluation Date, Time and Location Date Performed: 10/23/22 Time Performed: 07:15 Patient Location: Obstetrics Vital Signs Most Recent Imported Vital Signs: Most Recent Vital Signs Temp Pulse Resp BP Pulse Ox 36.9 C 70 16 110/73 99 10/23/22 08:30 10/23/22 08:30 10/23/22 08:30 10/23/22 08:30 10/22/22 07:44 Pain Score Most Recent Pain Score: Most Recent Pain Score Pain Level [Genital] 0 10/23/22 08:30 Pain Level 2 10/23/22 06:33 Assessment Mental Status: Awake (Alert & Oriented to Patient Baseline) Airway and Respiratory Function: Patent airway with normal (patient baseline) respiratory exam Cardiovascular Function: Hemodynamically Stable Hydration Status: Adequately Hydrated Nausea & Vomiting: No Nausea or Vomiting Pain: Pt. Denies Any Pain Peripheral Nerve Block: Patient did not receive a nerve block
== END 2022-10-23 13:15 | disposition home or self-care (01) | DRG 806 ==
PROVIDERS: Admitting Provider Advanced Practice Midwife; PCP Nurse Practitioner Family; Visit Provider Advanced Practice Midwife
DX: O99.02 Anemia complicating childbirth (principal); O22.8X3 Other venous complications in pregnancy, third trimester; Z37.0 Single live birth; D64.9 Anemia, unspecified; O70.0 First degree perineal laceration during delivery; Z3A.39 39 weeks gestation of pregnancy
CPT/HCPCS: 36415; 85027; 86850; 86900; 86901; 87635

== ENCOUNTER 2022-12-06 14:54 | Outpatient (REF) | payer OTHER, SELFPAY ==
--- NOTE | 2022-12-06 13:30 | PAPFT_PTH ---
PATIENT: Beatriz Gomez LOC: [facility] U#:[id number] AGE/SX: 37/F ROOM: RE12/06/[address]: Becky Foster CNM : 1985 BED: DIS: 12/06/2022 SPEC #: [id number] RECD: 12/06/22 16:40 STATUS: SAMIR REQ #: [id number] HEMALATHA: 12/06/22 13:[address]: Becky Foster DEPT: [facility] Cytology RECD BY: Sabra Winters ENTERED: 12/06/22 16:41 SP TYPE: PAPFT OTHR DR: Claudia Manzanares Tissues: 1 - CX/ENDOCX FOR PAP SMEARS Procedures: PAP THIN PREP/[facility] Screening HPV DNA PROBE Comments: [id number]
== END 2022-12-06 14:55 | disposition home or self-care (01) ==
LOC: LBN 14:54
PROVIDERS: PCP Nurse Practitioner Family; Visit Provider Advanced Practice Midwife
DX: Z12.4 Encounter for screening for malignant neoplasm of cervix (principal); Z11.51 Encounter for screening for human papillomavirus (HPV)
CPT/HCPCS: 88142; 87624

== ENCOUNTER 2025-02-01 15:25 | Outpatient (REF) | payer BC, SELFPAY ==
[2025-02-01 21:34] LABS: Calculated LDL 145 mg/dL (<100); Cholesterol 249 mg/dL (<200); HDL Cholesterol 67 mg/dL (>or=50); Triglyceride 188 mg/dL (<150)
[2025-02-01 21:35] LABS: Hemoglobin A1C 5.6 % (<5.7)
== END 2025-02-01 15:26 | disposition home or self-care (01) ==
LOC: NCHCN 15:25
PROVIDERS: PCP Nurse Practitioner Family; Visit Provider Nurse Practitioner Family
DX: Z00.00 Encounter for general adult medical examination without abnormal findings (principal)
CPT/HCPCS: 80061; 83036